=== PATIENT | female | born 1990 | race American Indian/Alaskan Native ===

== ENCOUNTER 2017-04-30 03:58 | Emergency (ER) | payer MEDICAID ==
[2017-04-30 03:58] VITALS: BMI 33.0
[2017-04-30 04:15] VITALS: RESP 16; TEMP 98.9; O2SAT 100
--- NOTE | 2017-04-30 04:37 | ED PDOC ---
HPI: Psych/Substance Abuse Time Seen by Provider: 04/30/17 04:17 Chief Complaint (Nursing): Psychiatric Evaluation Chief Complaint (Provider): Psychiatric Evaluation History Per: Patient History/Exam Limitations: no limitations Current Symptoms Are (Timing): Still Present Additional History Per: EMS Additional Complaint(s): 26 year old female brought in by EMS presents to ED with complaints of suicidal ideation and notes a history of depression. Patient has presented multiple times to [facility] in the past with bed-seeking behavior and was discharged from [facility] 2 hours [facility] [employer] [facility] to [facility] [facility]. EMS reports patient called again and requested to be brought to another ED. PCP: None Past Medical History Reviewed: Historical Data, Nursing Documentation, Vital Signs Vital Signs: Last Vital Signs Temp 98.9 F 04/30/17 04:07 Pulse 95 H 04/30/17 04:07 Resp 16 04/30/17 04:07 BP 141/102 H 04/30/17 04:07 Pulse Ox 100 04/30/17 04:07 - Medical History PMH: Bipolar Disorder Denies: Asthma, Atrial Fibrillation, Bronchitis, Cardia Arrhythmia, CHF, COPD , Diabetes, Emphysema, Hepatitis, HIV, HTN, Hypercholesterolemia, Mitral Valve Prolapse, Peripheral Edema, Pneumonia, Pulmonary Embolism, Chronic Kidney Disease, Seizures, Sexually Transmitted Disease, Sleep Apnea - Surgical History Surgical History: Denies: Pacemaker - Family History Family History: States: Unknown Family Hx - Social History Drugs: Other (Patient was PCP positive at [facility] earlier today) - Immunization History Hx Tetanus Toxoid Vaccination: No Hx Influenza Vaccination: No Hx Pneumococcal Vaccination: No - Home Medications Home Medications: Ambulatory Orders Medication Instructions Recorded No Known Home Med 04/23/17 - Allergies Allergies/Adverse Reactions: Allergies Allergy/AdvReac Type Severity Reaction Status Date / Time No Known Allergies Allergy Verified 04/29/17 23:24 Review of Systems ROS Statement: Except As Marked, All Systems Reviewed And Found Negative Psych: Positive for: Suicidal ideation Physical Exam - Reviewed Nursing Documentation Reviewed: Yes Vital Signs Reviewed: Yes - Physical Exam Appears: Positive for: Well, Non-toxic, No Acute Distress Skin: Positive for: Normal Color, Warm, DRY Eye Exam: Positive for: EOMI, Normal appearance, PERRL ENT: Positive for: Normal ENT Inspection Cardiovascular/Chest: Positive for: Regular Rate, Rhythm Respiratory: Positive for: Normal Breath Sounds. Negative for: Respiratory Distress Gastrointestinal/Abdominal: Positive for: Normal Exam, Soft. Negative for: Tenderness Back: Positive for: Normal Inspection Extremity: Positive for: Normal ROM Neurologic/Psych: Positive for: Alert, Oriented. Negative for: Motor/Sensory Deficits - ECG O2 Sat by Pulse Oximetry: 100 Pulse Ox Interpretation: Normal (RA) Medical Decision Making Medical Decision Makin Initial impression: malingering disorder Initial plan: * Crisis eval Upon ED room arrival, patient requests a gown, socks, and blanket. 0520 Patient has been evaluated and cleared by crisis as per Dr. Angeles. Dx: PCP abuse Patient is stable for discharge home. Scribe Attestation: Documented by Nallely Smith acting as a scribe for Nestor Hicks MD. Scribe Attestation: All medical record entries made by the Scribe were at my direction and personally dictated by me. I have reviewed the chart and agree that the record accurately reflects my personal performance of the history, physical exam, medical decision making, and the department course for this patient. I have also personally directed, reviewed, and agree with the discharge instructions and disposition. Disposition - Clinical Impression Clinical Impression: PCP abuse - Disposition Referrals: Freedom Britton [Primary Care Provider] - Disposition: Routine/Home Disposition Time: 05:20 Condition: STABLE Instructions: Drug Abuse Treatment Forms: [employer] ([place])
[2017-04-30 06:46] VITALS: BP 140/70; PULSE 78
== END 2017-04-30 07:11 | disposition home or self-care (01) ==
LOC: H.ER 03:58
DX: R45.851 Suicidal ideations (principal); F16.10 Hallucinogen abuse, uncomplicated; F31.9 Bipolar disorder, unspecified